=== PATIENT | female | born 2000 ===

== ENCOUNTER 2018-06-14 09:29 | Emergency (ER) | payer SELFPAY ==
[2018-06-14 09:35] VITALS: BP 103/51; PULSE 82; RESP 16; TEMP 98.6; O2SAT 98
--- NOTE | 2018-06-14 09:48 | C.PDOC ---
History Of Present Illness 18 y/o female presents to the ED complaining of vaginal bleeding for 3 days. Patient states current menses came earlier and is heavier than usual. LMP was 05/25/18. No other associated symptoms. Patient denies history of irregular menses. Denies any nausea, vomiting, pain, or other symptoms. Patient is . Time Seen by Provider: 06/14/18 09:34 Chief Complaint (Nursing): Female Genitourinary History Per: Patient History/Exam Limitations: no limitations Onset/Duration Of Symptoms: Days Current Symptoms Are (Timing): Still Present Abnormal Vaginal Bleeding: Yes Last Menstral Period: 05/25 : 3 Para: 1 Past Medical History Reviewed: Historical Data, Nursing Documentation, Vital Signs Vital Signs: Last Vital Signs Temp 98.6 F 06/14/18 09:32 Pulse 82 06/14/18 09:32 Resp 16 06/14/18 09:32 BP 103/51 L 06/14/18 09:32 Pulse Ox 98 06/14/18 09:32 - Medical History PMH: No Chronic Diseases Family History: States: No Known Family Hx - Social History Hx Alcohol Use: No Hx Substance Use: No - Immunization History Hx Tetanus Toxoid Vaccination: No Hx Influenza Vaccination: No Hx Pneumococcal Vaccination: No Review Of Systems Except As Marked, All Systems Reviewed And Found Negative. Constitutional: Negative for: Fever Respiratory: Negative for: Shortness of Breath Gastrointestinal: Negative for: Nausea, Vomiting, Abdominal Pain, Diarrhea Genitourinary: Positive for: Vaginal Bleeding. Negative for: Dysuria Musculoskeletal: Negative for: Back Pain Skin: Negative for: Rash Neurological: Negative for: Weakness, Dizziness Physical Exam - Physical Exam Appears: Well, Non-toxic, No Acute Distress Skin: Normal Color, Warm, No Pale Head: Atraumatic, Normacephalic Eye(s): bilateral: Normal Inspection (no conjunctival pallor), PERRL, EOMI Nose: Normal Oral Mucosa: Moist Neck: Normal ROM Chest: Symmetrical Cardiovascular: Rhythm Regular, No Murmur Respiratory: Normal Breath Sounds, No Accessory Muscle Use, Other (NARD) Gastrointestinal/Abdominal: Soft, No Tenderness, No Distention, No Guarding Extremity: Bilateral: Atraumatic, Normal Color And Temperature Pulses: Left Radial: Normal, Right Radial: Normal Neurological/Psych: Oriented x3, Normal Speech ED Course And Treatment - Laboratory Results Urine POC: Negative O2 Sat by Pulse Oximetry: 98 (RA) Pulse Ox Interpretation: Normal Medical Decision Making Medical Decision Making: Impression: Irregular menses, vaginal bleeding Urine POC negative. Patient educated regarding the importance of OBGYN follow-up for persistent or recurrent menses. No s/s of acute blood loss. Disposition Counseled Patient/Family Regarding: Diagnosis, Need For Followup - Disposition Referrals: [facility] [Outside] [facility] [Outside] [facility] [Outside] Disposition: HOME/ ROUTINE Disposition Time: 09:50 Condition: GOOD Instructions: Heavy Periods (DC) Forms: Digital Message Display (Anguillan) Print Language: BRAZILIAN - Clinical Impression Clinical Impression: Menometrorrhagia - Scribe Statement The provider has reviewed the documentation as recorded by the Diana Casiano Provider Attestation: All medical record entries made by the Diana were at my direction and personally dictated by me. I have reviewed the chart and agree that the record accurately reflects my personal performance of the history, physical exam, medical decision making, and the department course for this patient. I have also personally directed, reviewed, and agree with the discharge instructions and disposition.
== END 2018-06-14 10:09 | disposition home or self-care (01) ==
LOC: C.ER 09:29
DX: N92.1 Excessive and frequent menstruation with irregular cycle (principal)